=== PATIENT | male | born 1980 | race Caucasian/White ===

== ENCOUNTER 2019-07-13 08:55 | Emergency (ER) | payer OTHER, SELFPAY ==
[2019-07-13] MEDS ORDERED: PROMETHAZINE INJ 25 MG/ML AMP ONE (09:22)
[2019-07-13] MEDS ORDERED: FENTANYL CITR 100 MCG/2 ML ONE (09:23)
[2019-07-13] MEDS ORDERED: NA CHLORIDE 0.9% 1,000 ML ONE (09:23)
[2019-07-13 09:39] LABS: Urine Blood 2+ (NEG); Urine Glucose NEGATIVE (NEG); Urine Protein NEGATIVE (NEG); Urine Specific Gravity 1.025 (1.005-1.030); Urine pH 5.5 (5.0-7.0)
[2019-07-13 09:42] LABS: Absolute Lymphocytes (CBC) 4.2 K/uL (0.7-4.9); Basophils % 0.4 % (0-1.3); Hematocrit 49.1 % (39.6-49.0); Lymphocytes % 26.2 % (15.3-44.8); MPV 9.6 fL (7.6-11.3); RBC Red Blood Cell Count 5.83 M/uL (4.33-5.43)
[2019-07-13 09:45] LABS: Urine Bacteria NONE SEEN /HPF (NONE SEEN); Urine RBC 20-50 /HPF (NONE SEEN)
[2019-07-13 09:46] LABS: Urine Culture Reflex Order NOT NEEDED; Urine Mucus LIGHT /HPF (NONE SEEN)
[2019-07-13 09:52] LABS: Potassium 3.8 mmol/L (3.5-5.1)
--- NOTE | 2019-07-13 10:10 | RAD REPORT ---
EXAM DESCRIPTION: CT - Stone Protocol - 07/13/2019 9:49 am CLINICAL HISTORY: Abdominal pain. Hematuria/right flank pain COMPARISON: None. TECHNIQUE: Computed axial tomography of the abdomen pelvis was obtained without oral or IV contrast. Lack of IV and oral contrast limits evaluation of solid organs, bowel, and vessels. Coronal reformat skyler images were obtained and reviewed. All CT scans are performed using dose optimization technique as appropriate and may include automated exposure control or mA/KV adjustment according to patient size. FINDINGS: Very small bilateral renal calculi. Mild right hydronephrosis. 2 millimeter calculus near the right UVJ. Mild fatty liver. The Spleen, pancreas and adrenals appear grossly normal There is no evidence of diverticulitis. The appendix appears normal IMPRESSION: 2 millimeter calculus near the right UVJ resulting in mild right hydronephrosis
--- NOTE | 2019-07-13 10:15 | ER ---
Nurse's Notes [facility] Name: Amadeo Posey Jr Age: 38 yrs Sex: Male : 1980 Arrival Date: 07/13/2019 Time: 08:57 Bed 13 Private MD: Diagnosis: Hydronephrosis with renal and ureteral calculous obstruction Presentation: 07/12 09:00 Chief complaint: Patient states: right mid back pain "that woke me up in the middle of aa5 the night". Pt also reports "nausea and cold sweats". Denies vomiting. Reports "pink urine". 09:00 Coronavirus screen: Proceed with normal triage. Patient denies a cough. Patient denies aa5 shortness of breath or difficulty breathing. Patient denies measured and/or subjective temperature greater than 100.4F prior to today's visit. Patient denies travel on a cruise ship or to a country the [facility] currently lists as an affected area. Patient denies contact with known and/or suspected case of COVID-19. Ebola Screen: Patient negative for fever greater than or equal to 101.5 degrees Fahrenheit, and additional compatible Ebola Virus Disease symptoms. Initial Sepsis Screen: Does the patient meet any 2 criteria? No. Patient's initial sepsis screen is negative. Does the patient have a suspected source of infection? No. Patient's initial sepsis screen is negative. Risk Assessment: Do you want to hurt yourself or someone else? Patient reports no desire to harm self or others. Onset of symptoms was July 13, 2019. 09:00 Acuity: ZAIRE 3 aa5 09:00 Method Of Arrival: Ambulatory aa5 Triage Assessment: 09:10 General: Appears in no apparent distress. uncomfortable, obese, Behavior is bp cooperative, appropriate for age, anxious. Pain: Complains of pain in right mid back. EENT: No deficits noted. Neuro: No deficits noted. Cardiovascular: No deficits noted. Respiratory: No deficits noted. GI: No signs and/or symptoms were reported involving the gastrointestinal system. : Reports pain in right flank(s). Derm: No deficits noted. Musculoskeletal: No deficits noted. Historical: - Allergies: 09:00 No Known Allergies; aa5 - Home Meds: 09:00 None [Active]; aa5 - PMHx: 09:00 None; aa5 - PSHx: 09:00 Perirectal abscess; aa5 - Immunization history:: Adult Immunizations up to date. - Social history:: Smoking status: Patient denies any tobacco usage or history of. Screenin:10 Abuse screen: Denies threats or abuse. Denies injuries from another. Nutritional bp screening: No deficits noted. Tuberculosis screening: No symptoms or risk factors identified. Fall Risk None identified. Assessment: 09:10 General: SEE TRIAGE NOTE. bp 09:39 Reassessment: PT TO CT WITH ELEMENTARY LIBRARIAN. bp 09:57 Reassessment: PT RETURNED FROM CT. ALL CURRENT ORDERS IN PROCESS. bp 10:33 Reassessment: PT D/C HOME AMBULATORY, DX WITH HYDRONEPHROSIS WITH RENAL CALCULOUS. bp Vital Signs: 09:00 Temp 98.4(O); Weight 147.42 kg (R); Height 5 ft. 11 in. (180.34 cm) (R); Pain 9/10; aa5 09:02 BP 145 / 96; Pulse 65; Resp 18 S; Pulse Ox 97% on R/A; aa5 09:38 BP 135 / 84; Pulse 75; Resp 16; Pulse Ox 97% ; bp 10:33 BP 138 / 74; Pulse 72; Resp 16; Temp 98.5; Pulse Ox 97% ; bp 09:00 Body Mass Index 45.33 (147.42 kg, 180.34 cm) aa5 ED Course: 08:57 Patient arrived in ED. as 08:58 Claudia Jackson FNP-C [facility]. snw 08:58 Arm band placed on Patient placed in an exam room, on a stretcher. aa5 08:59 Gerald Carson MD is Attending Physician. snw 09:10 Triage completed. aa5 09:10 Patient has correct armband on for positive identification. Placed in gown. Bed in low bp position. Call light in reach. Side rails up X2. 09:14 Ramon Yoo, AMOS is Primary Nurse. bp 09:14 Inserted saline lock: 20 gauge in right forearm, using aseptic technique. Blood bp collected. 09:49 CT completed. Patient tolerated procedure well. Patient moved back from CT. bq 09:49 Stone Protocol In Process Unspecified. EDMS 10:33 No provider procedures requiring assistance completed. IV discontinued, intact, bp bleeding controlled, No redness/swelling at site. Pressure dressing applied. Administered Medications: 09:20 Drug: NS 0.9% 1000 ml Route: IV; Rate: 1 bolus; Site: right forearm; bp 10:35 Follow up: IV Status: Completed infusion; IV Intake: 1000ml bp 09:20 Drug: fentaNYL (PF) 50 mcg Route: IVP; Site: right forearm; bp 10:21 Follow up: Response: Pain is decreased bp 09:20 Drug: Phenergan 6.25 mg Route: IVP; Site: right forearm; bp 10:21 Follow up: Response: No adverse reaction bp 10:20 Drug: Cipro 500 mg Route: PO; bp 10:32 Follow up: Response: No adverse reaction bp 10:20 Drug: Flomax 0.4 mg Route: PO; bp 10:32 Follow up: Response: No adverse reaction bp Intake: 10:35 IV: 1000ml; Total: 1000ml. bp Outcome: 10:14 Discharge ordered by MD. snw 10:33 Discharged to home ambulatory. bp 10:33 Condition: stable 10:33 Discharge instructions given to patient, Instructed on discharge instructions, follow up and referral plans. medication usage, Demonstrated understanding of instructions, follow-up care, medications, Prescriptions given X 3. 10:35 Patient left the ED. bp Signatures: Dispatcher [employer] EDClaudia Gonzalez FNP-C SOCK LINER-Mayelin Hidalgo Amelia as Calderon, Audri, RN RN aa5 Ramon Yoo RN RN bp
--- NOTE | 2019-07-13 10:16 | EDPHYS ---
Physician Documentation [facility] Name: Amadeo Posey Jr Age: 38 yrs Sex: Male : 1980 Arrival Date: 07/13/2019 Time: 08:57 Bed 13 Private MD: ED Physician Gerald Carson HPI: 07/12 09:07 This 38 yrs old Male presents to ER via Unassigned with complaints of Flank snw Pain. 09:07 The patient complains of pain in the right mid back. The pain does not radiate. Onset: snw The symptoms/episode began/occurred suddenly, this morning. Associated signs and symptoms: Pertinent positives: urinary frequency, nausea. Severity of pain: At its worst the pain was moderate severe in the emergency department the pain is unchanged. The patient has not experienced similar symptoms in the past. The patient has not recently seen a physician, the patient's primary care provider is Dr. Monster Travis NP. afebrile. Historical: - Allergies: 09:00 No Known Allergies; aa5 - Home Meds: 09:00 None [Active]; aa5 - PMHx: 09:00 None; aa5 - PSHx: 09:00 Perirectal abscess; aa5 - Immunization history:: Adult Immunizations up to date. - Social history:: Smoking status: Patient denies any tobacco usage or history of. ROS: 09:06 Constitutional: Negative for fever, chills, and weight loss, Eyes: Negative for injury, snw pain, redness, and discharge, ENT: Negative for injury, pain, and discharge, Neck: Negative for injury, pain, and swelling, Cardiovascular: Negative for chest pain, palpitations, and edema, Respiratory: Negative for shortness of breath, cough, wheezing, and pleuritic chest pain. 09:06 : Negative for injury, bleeding, discharge, and swelling, + pink urine MS/Extremity: Negative for injury and deformity, Skin: Negative for injury, rash, and discoloration, Neuro: Negative for headache, weakness, numbness, tingling, and seizure, Psych: Negative for depression, anxiety, suicide ideation, homicidal ideation, and hallucinations. 09:06 Abdomen/GI: Positive for nausea. 09:06 Back: Positive for flank pain, on the right. Exam: 09:05 Head/Face: Normocephalic, atraumatic. Eyes: Pupils equal round and reactive to light, snw extra-ocular motions intact. Lids and lashes normal. Conjunctiva and sclera are non-icteric and not injected. Cornea within normal limits. Periorbital areas with no swelling, redness, or edema. ENT: Nares patent. No nasal discharge, no septal abnormalities noted. Tympanic membranes are normal and external auditory canals are clear. Oropharynx with no redness, swelling, or masses, exudates, or evidence of obstruction, uvula midline. Mucous membranes moist. Neck: Trachea midline, no thyromegaly or masses palpated, and no cervical lymphadenopathy. Supple, full range of motion without nuchal rigidity, or vertebral point tenderness. No Meningismus. Chest/axilla: Normal chest wall appearance and motion. Nontender with no deformity. No lesions are appreciated. Cardiovascular: Regular rate and rhythm with a normal S1 and S2. No gallops, murmurs, or rubs. Normal PMI, no JVD. No pulse deficits. Respiratory: Lungs have equal breath sounds bilaterally, clear to auscultation and percussion. No rales, rhonchi or wheezes noted. No increased work of breathing, no retractions or nasal flaring. Skin: Warm, dry with normal turgor. Normal color with no rashes, no lesions, and no evidence of cellulitis. MS/ Extremity: Pulses equal, no cyanosis. Neurovascular intact. Full, normal range of motion. Neuro: Awake and alert, GCS 15, oriented to person, place, time, and situation. Cranial nerves II-XII grossly intact. Motor strength 5/5 in all extremities. Sensory grossly intact. Cerebellar exam normal. Normal gait. Psych: Awake, alert, with orientation to person, place and time. Behavior, mood, and affect are within normal limits. 09:05 Constitutional: The patient appears alert, awake, obese, uncomfortable. 09:05 Back: pain, that is very mild, ROM is normal, CVA tenderness, is absent. Vital Signs: 09:00 Temp 98.4(O); Weight 147.42 kg (R); Height 5 ft. 11 in. (180.34 cm) (R); Pain 9/10; aa5 09:02 BP 145 / 96; Pulse 65; Resp 18 S; Pulse Ox 97% on R/A; aa5 09:38 BP 135 / 84; Pulse 75; Resp 16; Pulse Ox 97% ; bp 10:33 BP 138 / 74; Pulse 72; Resp 16; Temp 98.5; Pulse Ox 97% ; bp 09:00 Body Mass Index 45.33 (147.42 kg, 180.34 cm) aa5 MDM: 09:04 Patient medically screened. snw 10:15 Data reviewed: vital signs, nurses notes. Data interpreted: Pulse oximetry: on room air snw is 97 %. Interpretation: normal. Counseling: I had a detailed discussion with the patient and/or guardian regarding: the historical points, exam findings, and any diagnostic results supporting the discharge/admit diagnosis, lab results, radiology results, the need for outpatient follow up, to return to the emergency department if symptoms worsen or persist or if there are any questions or concerns that arise at home. Special discussion: Based on the patient's Hx, exam, and Dx evaluation, there is no indication for emergent surgery or inpatient Tx. It is understood by the patient/guardian that if the Sx's persist or worsen they need to return immediately for re-evaluation. Based on the history and exam findings, there is no indication for further emergent testing or inpatient evaluation. I discussed with the patient/guardian the need to see the primary care provider for further evaluation of the symptoms. I discussed with the patient/guardian the need to see the urologist for further evaluation of the symptoms. 07/12 09:33 Order name: Urine Dipstick--Ancillary (enter results); Complete Time: 10:18 tt3 07/12 09:34 Order name: Basic Metabolic Panel; Complete Time: 10:02 [facility] 07/12 09:33 Order name: Stone Protocol; Complete Time: 10:09 [facility] 07/12 09:34 Order name: CBC with Automated Diff; Complete Time: 10:02 [facility] 07/12 09:34 Order name: Urine Microscopic Only; Complete Time: 10:02 [facility] 07/12 09:34 Order name: Urine Culture [facility] 07/12 09:38 Order name: Urine Dipstick-Ancillary; Complete Time: 09:40 [facility] 07/12 09:05 Order name: Urine Dipstick-Ancillary (obtain specimen); Complete Time: 09:30 snw Administered Medications: 09:20 Drug: NS 0.9% 1000 ml Route: IV; Rate: 1 bolus; Site: right forearm; bp 10:35 Follow up: IV Status: Completed infusion; IV Intake: 1000ml bp 09:20 Drug: fentaNYL (PF) 50 mcg Route: IVP; Site: right forearm; bp 10:21 Follow up: Response: Pain is decreased bp 09:20 Drug: Phenergan 6.25 mg Route: IVP; Site: right forearm; bp 10:21 Follow up: Response: No adverse reaction bp 10:20 Drug: Cipro 500 mg Route: PO; bp 10:32 Follow up: Response: No adverse reaction bp 10:20 Drug: Flomax 0.4 mg Route: PO; bp 10:32 Follow up: Response: No adverse reaction bp Disposition: 12:30 Co-signature as Attending Physician, Gerald Carson MD. rn Disposition: 07/13/19 10:14 Discharged to Home. Impression: Hydronephrosis with renal and ureteral calculous obstruction. - Condition is Stable. - Discharge Instructions: Kidney Stones, Hydronephrosis, Dietary Guidelines to Help Prevent Kidney Stones, Rehydration, Adult. - Prescriptions for Cipro 500 mg Oral Tablet - take 1 tablet by ORAL route every 12 hours for 7 days; 14 tablet. Diclofenac Sodium 75 mg Oral Tablet Sustained Release - take 1 tablet by ORAL route 2 times per day; 30 tablet. promethazine 25 mg Oral Tablet - take 1 tablet by ORAL route every 6 hours As needed; 20 tablet. - Work release form, Medication Reconciliation Form, Thank You Letter, Antibiotic Education, Prescription Opioid Use form. - Follow up: Emergency Department; When: As needed; Reason: Worsening of condition. Follow up: Private Physician; When: 2 - 3 days; Reason: Recheck today's complaints, Continuance of care, Re-evaluation by your physician. Signatures: Dispatcher [employer] EDMS Claudia Jackson, NUCLEAR SCIENTIST-C NUCLEAR SCIENTIST-Csnw Gerald Carson MD MD rn Calderon, Audri RN RN aa5 Raomn Yoo, RN RN bp Corrections: (The following items were deleted from the chart) 10:13 10:07 Stone Protocol+CT.RAD.BRZ ordered. EDMS EDMS 10:16 10:07 BASIC METABOLIC PANEL+C.LAB.BRZ ordered. EDMS EDMS 10:17 10:07 Urine Culture+BA.LAB.BRZ ordered. [facility] EDTX 10:17 10:07 UA MICROSCOPIC+U.LAB.BRZ ordered. [facility] EDTX 10:17 10:07 CBC+H.LAB.BRZ ordered. [facility] EDTX 10:35 10:14 07/13/2019 10:14 Discharged to Home. Impression: Hydronephrosis with renal and bp ureteral calculous obstruction. Condition is Stable. Forms are Medication Reconciliation Form, Thank You Letter, Antibiotic Education, Prescription Opioid Use. Follow up: Emergency Department; When: As needed; Reason: Worsening of condition. Follow up: Private Physician; When: 2 - 3 days; Reason: Recheck today's complaints, Continuance of care, Re-evaluation by your physician. snw
[2019-07-13 10:20] LABS: Urine Blood 2+ (NEG); Urine Glucose NEGATIVE (NEG); Urine Protein NEGATIVE (NEG); Urine Specific Gravity 1.025 (1.005-1.030); Urine pH 5.5 (5.0-7.0)
[2019-07-13] MEDS ORDERED: CIPROFLOXACIN HCL 500 MG TAB ONE (10:31)
[2019-07-13] MEDS ORDERED: TAMSULOSIN 0.4 MG SR CAP ONE (10:32)
[2019-07-13 10:41] VITALS: O2SAT 97
[2019-07-13 10:44] VITALS: BP 138/74; TEMP 98.5
== END 2019-07-13 10:35 | disposition home or self-care (01) ==
LOC: ER 08:55
DX: N13.2 Hydronephrosis with renal and ureteral calculous obstruction (principal)
CPT/HCPCS: 36415; 74176; 76377; 80048; 81003; 81015; 85025; 87086; 87088; 96361; 96374; 96375; 99284; J2550; J3010; J7030